=== PATIENT | female | born 1980 | race Caucasian/White ===

== ENCOUNTER 2018-05-02 19:43 | Emergency (ER) | payer BC ==
[2018-05-02 19:52] VITALS: PULSE 76; TEMP 98; BMI 23.1
--- NOTE | 2018-05-02 19:55 | PDOC ---
History of Present Illness - History of Present Illness Initial Comments: 05/02/18 20:29 The patient is a 38 year old female, with a significant PMH of depression, who presents to the emergency department via walk-in with 8 days of intermittent suprapubic abdominal pain, dysuria, frequency, lightheadedness, body aches and nausea without vomiting. The patient states she was seen at [facility] 8 days ago for the exact same complaints, had a CT and ultrasound performed which were negative and was diagnosed with a UTI and prescribed Ceftin antibiotics. The patient reports mild relief of her symptoms until today where she states she finished her full course of Ceftin antibiotics and her symptoms began to return. The patient states she has not followed with her PCP as she was on vacation during the week. The patient reports her last BM was earlier today which was normal and states her LMP was 2 weeks ago. The patient also states she took 4 500 mg Tylenol pills prior to arrival. The patient denies chest pain, shortness of breath, headache. Denies fever, chills, diarrhea and constipation. Denies urgency and hematuria. PAST MEDICAL HISTORY: depression PAST SURGICAL HISTORY: no significant history FAMILY HISTORY: no pertinent history SOCIAL HISTORY: Pt lives with family and is employed. MEDICATIONS: reviewed ALLERGIES: As per nursing notes Review of Systems General: No fevers or chills, no weakness, no weight loss HEENT: No change in vision. No sore throat,. No ear pain CardioVascular: No chest pain or shortness of breath Respiratory: No cough, or wheezing. Gastrointestinal: +Suprapubic abdominal pain. +Nausea. No vomiting, diarrhea or constipation, No rectal bleeding Genitourinary: +Dysuria. +Frequency. No hematuria. Musculoskeletal: +Body aches No joint or muscle pain or swelling Neurologic: +Dizziness. No headache, vertigo or loss of consciousness Psychiatric: nor depression Skin: No rashes or easy bruising Endocrine: no increased thirst or abnormal weight change Allergic: no skin or latex allergy All other systems reviewed and normal Physical Exam GENERAL: The patient is awake, alert, and fully oriented, in no acute distress. HEAD: Normal with no signs of trauma. EYES: Pupils equal, round and reactive to light, extraocular movements intact, sclera anicteric, conjunctiva clear. ABDOMEN: +Mild tenderness to palpation lower abdomen. No rebound or guarding. BACK: +Mild tenderness bilateral lower back. No CVA tenderness. EXTREMITIES: Normal range of motion, no edema. NEUROLOGICAL: Normal speech, normal gait. PSYCH: Normal mood, normal affect. SKIN: Warm, Dry, normal turgor, no rashes or lesions noted. <Pato Herzog - Last Filed: 05/02/18 20:51> - General History Source: Patient Exam Limitations: No Limitations - History of Present Illness Initial Comments: 05/02/18 22:07 A portion of this note was documented by scribe services under my direction. I have reviewed the details of the note, within reason, and agree with the documentation. The case summary and management plan written by me. Assessment and plan: This is a 38-year-old female who had a full complete workup including CAT scan, ultrasound of her pelvis, lab work and urinalysis at another institution approximately 1 week ago for similar symptoms. Patient was given antibiotics for a UTI and now returns one week later saying that she still is having symptoms and they are not improved from a week ago. Another workup was done here including lab work a flat and upright of the abdomen and patient was given pain medication and IV fluids. Patient does feel somewhat better however her flat and upright of her abdomen shows constipation but no acute pathology. Patient was recommended to get a enema and self administer it and follow up with her OB doctor on Thursday for further evaluation if she is not improved. Patient discharged home with her . <Ariel Gordon I - Last Filed: 05/02/18 22:09> - General Chief Complaint: Urinary Problem Stated Complaint: URINE INFECTION, BLOOD IN URINE Time Seen by Provider: 05/02/18 19:47 Past History <Pato Herzog - Last Filed: 05/02/18 20:51> <Ariel Gordon I - Last Filed: 05/02/18 22:09> - Past Medical History Allergies/Adverse Reactions: Allergies Allergy/AdvReac Type Severity Reaction Status Date / Time No Known Allergies Allergy Verified 05/02/18 19:44 Home Medications: Ambulatory Orders Ondansetron [Zofran Odt -] 4 mg SL TID #14 od.tablet 05/02/18 Quetiapine Fumarate [Seroquel] 400 mg PO HS 05/02/18 *Physical Exam - Vital Signs Last Vital Signs Temp Pulse Resp BP Pulse Ox 98 F 76 18 134/104 100 05/02/18 19:46 05/02/18 19:46 05/02/18 19:46 05/02/18 19:46 05/02/18 19:46 <Pato Herzog - Last Filed: 05/02/18 20:51> ED Treatment Course - LABORATORY CBC & Chemistry Diagram: 05/02/18 20:23 05/02/18 20:23 - ADDITIONAL ORDERS Additional order review: Laboratory Results 05/02/18 19:52 Urine Color Yellow Urine Appearance Clear Urine pH 6.0 Ur Specific [place]den <= 1.005 Urine Protein Negative Urine Glucose (UA) Negative Urine Ketones Negative Urine Blood Trace-intact H Urine Nitrite Negative Urine Bilirubin Negative Urine Urobilinogen 0.2 Ur Leukocyte Esterase Negative Urine HCG, Qual Negative - Medications Given in the ED: ED Medications Discontinued Medications Generic Name Dose Route Start Last Admin Trade Name Ayushq PRN Reason Stop Dose Admin Ketorolac Tromethamine 30 mg 05/02/18 20:09 05/02/18 20:26 Toradol Injection - IVPUSH 05/02/18 20:10 30 mg ONCE ONE Administration <Pato Herzog - Last Filed: 05/02/18 20:51> - LABORATORY CBC & Chemistry Diagram: 05/02/18 20:23 05/02/18 20:23 <Ariel Gordon I - Last Filed: 05/02/18 22:09> *DC/Admit/Observation/Transfer - Attestations Scribe Attestion: 05/02/18 20:30 Documentation prepared by Pato Herzog, acting as medical case worker for Ariel Gordon MD. <Pato Herzog - Last Filed: 05/02/18 20:51> - Discharge Dispostion Decision to Admit order: No <Ariel Gordon I - Last Filed: 05/02/18 22:09> Diagnosis at time of Disposition: Abdominal pain Qualifiers: Abdominal location: lower abdomen, unspecified Qualified Code(s): R10.30 - Lower abdominal pain, unspecified - Discharge Dispostion Disposition: HOME Condition at time of disposition: Stable - Prescriptions Prescriptions: Ondansetron [Zofran Odt -] 4 mg SL TID #14 od.tablet - Patient Instructions Additional Instructions: Tylenol or motrin as needed for pain in addition to your tramadol. Follow up with your OB on thursday. Return for worsening symptoms or any concern.
[2018-05-02 20:05] LABS: HCG,QUALITATIVE URINE Negative
[2018-05-02 20:08] LABS: URINE APPEARANCE Clear; URINE BILIRUBIN Negative (NEGATIVE); URINE COLOR Yellow; URINE GLUCOSE (UA) Negative (NEGATIVE); URINE KETONE Negative (NEGATIVE); URINE LEUK ESTERASE Negative (NEGATIVE); URINE NITRITE Negative (NEGATIVE); URINE PROTEIN Negative (NEGATIVE); URINE UROBILINOGEN 0.2 (0.2-1.0)
[2018-05-02] MEDS ORDERED: KETOROLAC TROMETHAMINE 30 MG/1 ML VIAL IVPUSH ONE (20:09)
[2018-05-02] MEDS ORDERED: SODIUM CHLORIDE 1,000 ML IV ONE (20:09)
[2018-05-02] MEDS ORDERED: KETOROLAC TROMETHAMINE 30 MG/1 ML VIAL ONE (20:23)
[2018-05-02] MEDS ORDERED: ONDANSETRON 4 MG/2 ML VIAL IVPB ONE (20:28)
[2018-05-02 20:34] LABS: EPI CELLS FEW /HPF; URINE WBC NEGATIVE (0-5)
[2018-05-02 20:35] LABS: URINE BACTERIA FEW /hpf (NEGATIVE)
[2018-05-02] MEDS ORDERED: ONDANSETRON 4 MG/2 ML VIAL ONE (20:35)
[2018-05-02 20:43] LABS: BASO % 1.2 % (0-2.0); EOS % 2.1 % (0-4.5); HEMATOCRIT 41.2 % (32.4-45.2); HEMOGLOBIN 13.6 GM/dl (10.7-15.3); LYMPH % 42.4 % (8-40); MCH 30.8 pg (25.7-33.7); MCHC 33.2 g/dl (32.0-36.0); MEAN CELL VOLUME 92.9 fl (80-96); MEAN PLT VOLUME 9.3 fl (7.5-11.1); MONO % 5.3 % (3.8-10.2); PLATELET COUNT 277 K/MM3 (134-434); RBC 4.43 M/mm3 (3.60-5.2); WHITE BLOOD COUNT 8.9 K/mm3 (4.0-10.8)
[2018-05-02 20:52] LABS: ALBUMIN 4.5 g/dl (3.5-5.0); ALK PHOS 37 U/L (32-92); ANION GAP 6 MMOL/L (8-16); BILIRUBIN,TOTAL 0.4 mg/dl (0.2-1.0); BLOOD UREA NITROGEN 12 mg/dl (7-18); CALCIUM 9.4 mg/dl (8.4-10.2); CHLORIDE 105 mmol/L (98-107); CO2 25 mmol/L (22-28); CREATININE 0.7 mg/dl (0.6-1.3); GLUCOSE,RANDOM 88 mg/dl (74-106); POTASSIUM 3.9 mmol/L (3.5-5.1); SGOT/AST 16 U/L (10-42); SGPT/ALT 17 U/L (10-40); SODIUM 136 mmol/L (136-145); TOT PROT 7.7 g/dl (6.4-8.3)
[2018-05-02 21:39] VITALS: BP 140/99
== END 2018-05-02 21:38 | disposition home or self-care (01) ==
LOC: FER 19:43
PROC: 3E0333Z Introduction of Anti-inflammatory into Peripheral Vein, Percutaneous Approach (ICD-10-PCS; principal; 2018-05-02)
PROC: 3E033GC Introduction of Other Therapeutic Substance into Peripheral Vein, Percutaneous Approach (ICD-10-PCS; 2018-05-02)
PROC: 3E0337Z Introduction of Electrolytic and Water Balance Substance into Peripheral Vein, Percutaneous Approach (ICD-10-PCS; 2018-05-02)
DX: R10.30 Lower abdominal pain, unspecified (principal)
CPT/HCPCS: 36415; 74019-TC-FY; 80053; 81003; 81015; 84703; 85025; 87086; 99281-25; J7030

== ENCOUNTER 2020-12-08 21:42 | Emergency (ER) | payer BC ==
[2020-12-08 22:04] VITALS: BP 113/75; PULSE 70; TEMP 98.8; BMI 24.0
[2020-12-09] MEDS ORDERED: IBUPROFEN 600 MG TABLET (FP) PO ONE ×2 (02:37→03:06)
== END 2020-12-09 03:21 | disposition home or self-care (01) ==
LOC: FER 21:42
DX: R10.2 Pelvic and perineal pain (principal)
CPT/HCPCS: 76830-TC; 99284-25; C9803; U0003; U0005